=== PATIENT | female | born 1965 | race Hispanic/Latino ===

== ENCOUNTER 2021-10-04 08:45 | Outpatient (CLI) | payer OTHER | END 2021-10-04 08:46 | disposition home or self-care (01) | LOC: BICULT 08:45 | PROVIDERS: ATTEND Nurse Practitioner Family | DX: R94.5 Abnormal results of liver function studies (principal); R16.0 Hepatomegaly, not elsewhere classified; N28.1 Cyst of kidney, acquired | CPT/HCPCS: 76700 ==